=== PATIENT | female | born 1995 | race Caucasian/White ===

== ENCOUNTER 2018-03-10 00:08 | Emergency (ER) | payer SELFPAY ==
[~2018-03-10] VITALS: Ht 162.6 cm; Wt 62.6 kg
[2018-03-10 00:15] VITALS: BP 105/63
--- NOTE | 2018-03-10 01:04 | Emergency Room Report ---
History of Present Illness General Chief Complaint: Alcohol Intoxication Source: Patient Present Illness HPI Is a 22-year-old female with no past mental history. She presents with chief complaint of alcohol intoxication. She was in the back of an [employer]. When they got her home, they could not wake her up. 911 was called. Per EMS, she vomited when she got out of the [employer]. Patient said this happened all the time. Per EMS police have her purse and phone. Patient denies any injury. Denies any other complaint. Not suicidal or homicidal. Allergies: Coded Allergies: No Known Allergies (Unverified , 03/10/18) Patient History Past Medical History: see triage record, old chart reviewed Past Surgical History: none Pertinent Family History: none Social History: Reports: alcohol use Last Menstrual Period: unknown Now: No Immunizations: other Reviewed Nursing Documentation: PMH: Agreed; PSxH: Agreed Review of Systems Eye: Denies: eye pain, blurred vision ENT: Denies: ear pain, nose congestion, throat swelling Respiratory: Denies: cough, shortness of breath Cardiovascular: Denies: chest pain, palpitations Gastrointestinal: Denies: abdominal pain, diarrhea, nausea, vomiting Musculoskeletal: Denies: back pain, joint pain Skin: Denies: rash Neurological: Denies: headache, numbness Endocrine: Denies: increased thirst, increased urine Hematologic/Lymphatic: Denies: easy bruising All Other Systems: negative except mentioned in HPI Physical Exam Vital Signs Date Time Temp Pulse Resp B/P (MAP) Pulse Ox O2 Delivery O2 Flow Rate FiO2 03/09/18 23:59 97.5 98 20 105/63 98 Room Air 97.5 vitals normal Sp02 EP Interpretation: reviewed, normal General Appearance: well appearing, no apparent distress, alert, other - intoxicated Head: normocephalic, atraumatic Eyes: bilateral eye PERRL, bilateral eye EOMI ENT: hearing grossly normal, normal pharynx Neck: full range of motion, supple, no meningismus Respiratory: chest non-tender, lungs clear, normal breath sounds Cardiovascular #1: regular rate, rhythm, no murmur Gastrointestinal: normal bowel sounds, non tender, no mass, no organomegaly, no bruit, non-distended Musculoskeletal: back normal, gait/station normal, normal range of motion Psychiatric: mood/affect normal Skin: warm/dry Medical Decision Making Diagnostic Impression: Primary Impression: Acute alcoholic intoxication Qualified Codes: F10.929 - Alcohol use, unspecified with intoxication, unspecified ER Course Is a with alcohol intoxication. No evidence of any trauma. When she is more clinically sober, she can be discharged home. Last Vital Signs Date Time Temp Pulse Resp B/P (MAP) Pulse Ox O2 Delivery O2 Flow Rate FiO2 03/09/18 23:59 97.5 98 20 105/63 98 Room Air 97.5 Status: improved Disposition: HOME, SELF-CARE Condition: Stable Referrals: NOT CHOSEN IPA/,REFERRING (PCP) Patient Instructions: Alcohol Intoxication, [id number] Additional Instructions: Follow-up with your doctor in 7 days. Did not drink to excess. You may have an alcohol problem if you always drink to the point of passing out. Return if worse. Pancho Mo MD Mar 10, 2018 01:04
[2018-03-10 01:55] VITALS: BP_SYST 105; BP_SYST 108; BP_DIAS 63; BP_DIAS 64
== END 2018-03-10 01:55 | disposition home or self-care (01) ==
LOC: EDBD 00:08 → EMR 00:43
DX: F10.129 Alcohol abuse with intoxication, unspecified (principal)
CPT/HCPCS: 99283